=== PATIENT | female | born 1980 | race Caucasian/White ===

== ENCOUNTER 2019-06-09 10:32 | Emergency (ER) | payer OTHER, SELFPAY ==
[2019-06-09 10:40] VITALS: BP 137/80; PULSE 93; RESP 20; TEMP 36.7; O2SAT 98
--- NOTE | 2019-06-09 11:00 | ED.URI ---
HPI - URI/Sore Throat General Chief Complaint: Upper Respiratory Infection Stated Complaint: cough fever and aches Time Seen by Provider: 06/09/19 10:58 Source: patient and RN notes reviewed Mode of arrival: ambulatory Limitations: no limitations History of Present Illness HPI Narrative: 39-year-old female presents with concern for 3-week history of nasal congestion, rhinorrhea, cough. Reports yesterday she suddenly felt worse, like I got hit by a train and had a fever of 101. Reports taking [id number] medications no relief. Patient is a cigarette smoker. MD elicited complaint: nasal congestion Related Data Home Medications Medication Instructions Recorded Confirmed risperidone 1 mg PO BID 06/09/19 06/09/19 terbinafine HCl 250 mg PO DAILY 06/09/19 06/09/19 trazodone 50 mg PO HS 06/09/19 06/09/19 Allergies Allergy/AdvReac Type Severity Reaction Status Date / Time diphtheria, pertussis, Allergy Anaphylaxis Verified 06/09/19 10:51 tetanus vacc Review of Systems Review of Systems: Narrative: CONSTITUTIONAL: Reports malaise, chills, sweats, fever. EYES: Denies visual changes, redness, or discharge. ENT: Reports rhinorrhea, congestion, sinus pain. Denies otalgia and sore throat. CARDIOVASCULAR: Denies chest pain, palpitations, or edema. RESPIRATORY: Reports cough, chest congestion. Denies dyspnea. GASTROINTESTINAL: Denies abdominal pain, nausea, vomiting, diarrhea SKIN: Denies rash or itching. MUSCULOSKELETAL: Denies myalgia. NEUROLOGIC: Denies headache. All systems reviewed & are unremarkable except as noted in HPI and below PMFSH Comments At time of signature, agree with nursing past medical, surgical, social and family history. There is no relevant family history pertinent to the presenting complaint Exam Narrative: Exam Narrative: GENERAL: Well-appearing, well-nourished, and in no acute distress. HEAD: Normocephalic EYES: PERRLA, conjunctivae clear ENT: Nares clear, turbinates edematous and erythematous, purulent discharge, left sinus tenderness. Mucous membranes moist. TM pearly merida with dull light reflex bilaterally; no tragal tenderness. Oropharynx erythematous without lesions. Tonsils not enlarged and without exudate, no drooling, no hoarseness, no trismus. NECK: Supple. No lymphadenopathy CHEST: Clear to auscultation, breath sounds equal. No wheezing, rhonchi, rales, or stridor. No respiratory distress, speaks in full sentences. Cough noted HEART: Regular rate and rhythm. No murmur heard. Normal peripheral pulses. SKIN: Warm, dry, no rash. NEURO: Alert and oriented x3. PSYCH: Normal mood and affect Course Course Emergency Course: Patient is aware of diagnosis, understands and agrees to treatment plan. Anticipatory guidance given. Patient agrees to follow-up as directed and is aware of reasons to seek care at the emergency department. Portions of this record may have been created with voice recognition software Vital Signs Vital signs: Vital Signs Temperature 98.1 F 06/09/19 10:40 Pulse Rate 93 06/09/19 10:40 Respiratory Rate 20 06/09/19 10:40 Blood Pressure 137/80 06/09/19 10:40 Pulse Oximetry 98 06/09/19 10:40 Temperature 98.1 F 06/09/19 10:40 Pulse Rate 93 06/09/19 10:40 Respiratory Rate 20 06/09/19 10:40 Blood Pressure 137/80 06/09/19 10:40 Pulse Oximetry 98 06/09/19 10:40 Reviewed. Patient has been instructed to follow up with her primary care provider within the next week regarding her elevated blood pressure today. MDM - URI/Sore Throat MDM Narrative Medical decision making narrative: Differential diagnosis considered: Strep pharyngitis, allergic rhinitis, upper respiratory tract infection, sinusitis, rhinosinusitis, nasopharyngitis. viral pharyngitis, otitis media, otitis externa, pneumonia, bronchitis, viral cough syndrome, viral syndrome, and influenza. Exam findings show no acute concerns or changes; patient is non-toxic appearing and is in no
== END 2019-06-09 11:12 | disposition home or self-care (01) ==
PROVIDERS: Emergency Provider Nurse Practitioner
DX: J32.9 Chronic sinusitis, unspecified (principal); J40 Bronchitis, not specified as acute or chronic; F31.9 Bipolar disorder, unspecified
CPT/HCPCS: 99213; G0463

== ENCOUNTER 2019-06-29 08:32 | Emergency (ER) | payer OTHER, SELFPAY ==
[2019-06-29 08:41] VITALS: BP 153/91; PULSE 96; RESP 20; TEMP 36.8; O2SAT 98
--- NOTE | 2019-06-29 08:52 | ED.GENADULT ---
HPI - General Adult General Chief complaint: Ear Stated complaint: Qtip end in ear Time Seen by Provider: 06/29/19 08:56 Source: patient and family History of Present Illness HPI narrative: Patient states she was cleaning her ears with a Q-tip last night and part of the Q-tip is still in her left ear. Patient states she was unable to remove the Q-tip last night. Patient presents with left ear discomfort. No drainage no dizziness no hearing loss. Related Data Home Medications Medication Instructions Recorded Confirmed risperidone 1 mg PO BID 06/09/19 06/29/19 terbinafine HCl 250 mg PO DAILY 06/09/19 06/29/19 trazodone 50 mg PO HS 06/09/19 06/29/19 Allergies Allergy/AdvReac Type Severity Reaction Status Date / Time diphtheria, pertussis, Allergy Anaphylaxis Verified 06/29/19 08:50 tetanus vacc Review of Systems Review of Systems: Narrative: CONSTITUTIONAL: Denies fever, chills, or sweats. EYES: Denies visual changes, redness, or discharge. ENT: Denies rhinorrhea, congestion, sore throat, or otalgia. Q-tip in left ear CARDIOVASCULAR: Denies chest pain, palpitations, or edema. RESPIRATORY: Denies cough or dyspnea. GASTROINTESTINAL: Denies abdominal pain, nausea, vomiting, or diarrhea. GENITOURINARY: Denies dysuria or hematuria. SKIN: Denies rash or itching. MUSCULOSKELETAL: Denies back pain, joint pain, or myalgia. NEUROLOGIC: Denies headache, numbness, or weakness. PSYCHIATRIC: Denies anxiety or depression. PMFSH Comments At time of signature, agree with nursing past medical, surgical, social and family history. There is no relevant family history pertinent to the presenting complaint Exam Narrative: Exam Narrative: GENERAL: Well-appearing, well-nourished, and in no acute distress. HEAD: Normocephalic, atraumatic. EYES: PERRLA and EOMI. ENT: Nares clear, no rhinorrhea or epistaxis. Mucous membranes moist. Able to visualize cotton in left ear. Foreign body of cotton removed with alligator forceps. Post procedure able to visualize TM bilateral TMs intact with good light reflex slight erythremia to left canal. No tenderness with movement. Normal right canal. NECK: Supple. CHEST: Clear to auscultation. No respiratory distress. HEART: Regular rate and rhythm. No murmur heard. Normal peripheral pulses. ABDOMEN: Soft, nontender, nondistended, normal active bowel sounds. EXTREMITIES: Normal range of motion. No edema. SKIN: Warm, dry, no rash. NEURO: No focal deficits. Alert and oriented x3. Pasha Coma Scale Eye Opening: Spontaneous 4 Dana Coma Scale Motor: Obeys Commands 6 Pasha Coma Scale Verbal: Oriented 5 Pasha Coma Scale Total 15 Course Vital Signs Vital signs: Vital Signs Temperature 36.8 C 06/29/19 08:41 Pulse Rate 96 06/29/19 08:41 Respiratory Rate 20 06/29/19 08:41 Blood Pressure 153/91 H 06/29/19 08:41 Pulse Oximetry 98 06/29/19 08:41 Temperature 36.8 C 06/29/19 08:41 Pulse Rate 96 06/29/19 08:41 Respiratory Rate 20 06/29/19 08:41 Blood Pressure 153/91 H 06/29/19 08:41 Pulse Oximetry 98 06/29/19 08:41 Addressed elevated BP today. Today's blood pressure higher than recommended range. Discussed importance of follow -up with PCP and possible correction effects/cardiovascular events related to HTN. Currently patient denies headache, dizziness, vision changes, CP or shortness of breath. Procedures FB Removal Ear Foreign Body #1: Foreign Body Removal Date: 06/29/19 Foreign Body Removal Time: 08:58 Location: ear canal (L) Foreign Body Suspected: other (Piece of cotton from a Q-tip) TM intact pre-procedure: yes Foreign Body Removed: yes Foreign Body Removal Technique: forceps Tympanic Membrane Intact Post Procedure: Yes Patient Tolerated Procedure: well Complications: none Additional Comments: Piece of cotton removed from left ear canal patient tolerated well left TM intact slight rednes
== END 2019-06-29 09:01 | disposition home or self-care (01) ==
PROVIDERS: Emergency Provider Nurse Practitioner Family
DX: T16.2XXA Foreign body in left ear, initial encounter (principal); X58.XXXA Exposure to other specified factors, initial encounter; H60.92 Unspecified otitis externa, left ear; F31.9 Bipolar disorder, unspecified
CPT/HCPCS: 69200; 99213; G0463